=== PATIENT | female | born 1960 | race Caucasian/White ===

== ENCOUNTER 2021-03-27 23:08 | Emergency (ER) | payer OTHER ==
--- NOTE | 2021-03-27 23:34 | EDM.PDOC ---
ED HPI GENERAL MEDICAL PROBLEM - General Chief Complaint: Upper Extremity Injury/Pain Stated Complaint: POSSIBLE LEFT WRIST BROKEN Time Seen by Provider: 03/27/21 23:33 - History of Present Illness INITIAL COMMENTS - FREE TEXT/NARRATIVE: 60-year-old female presents the emergency room with left wrist injury and deformity. About an hour prior to arrival here the patient was walking and majora found an uneven piece of concrete tripped and fell forward. She had instant pain to her wrist and an obvious deformity. She denies any other injury associated with this most unfortunate event. The patient enjoys good health she is not on any routine medications. Left Wrist Pain Score (Numeric/FACES): 5 - Related Data Allergies Allergy/AdvReac Type Severity Reaction Status Date / Time Sulfa (Sulfonamide Allergy Rash Verified 03/27/21 23:24 Antibiotics) Home Meds: Home Meds . [No Known Home Meds] 03/27/21 [History] Review of Systems - Review of Systems Review Of Systems: See Below Constitutional: Reports: No Symptoms Respiratory: Reports: No Symptoms Cardiovascular: Reports: No Symptoms GI/Abdominal: Reports: No Symptoms ED EXAM, GENERAL - Physical Exam Exam: See Below Exam Limited By: No Limitations General Appearance: Alert, No Apparent Distress Head: Atraumatic, Normocephalic Neck: Normal Inspection, Supple, Non-Tender, Full Range of Motion. No: Lymphadenopathy (L), Lymphadenopathy (R) Respiratory/Chest: No Respiratory Distress, Lungs Clear, Normal Breath Sounds, No Accessory Muscle Use Cardiovascular: Regular Rate, Rhythm, No Edema, No Murmur Extremities: Other (Patient has an obvious deformity in her left wrist elbow appears normal she is got a volar displaced distal radius. Neurovascular status appears to be intact) Skin Exam: Other (She has an abrasion this does not appear to be close to the fracture fragment and is very superficial) ED TRAUMA EXTREMITY PROCEDURES - Joint Reduction Left Wrist Sedation: Other (IV fentanyl) Pre-Procedure NV Status: Normal Post-Procedure NV Status: Normal Technique: Other (In 5 pounds of weight in fingertrap traction this was gently reduced with subtle manipulation prior to splinting) Post-Reduction Imaging: Acceptably Reduced Joint Reduction Complications: No - Splinting Left Upper Extremity Splint Material: Plaster Splint Design: Sugar Tong Applied & Form Fitted By: Provider Provider Post-Splint Application NV Check: NV Status Normal Complications: No Course - Vital Signs Last Recorded V/S: Last Vital Signs Temp 36.1 C 03/27/21 23:24 Pulse 55 L 03/27/21 23:24 Resp 15 03/27/21 23:24 BP 106/66 03/27/21 23:24 Pulse Ox 98 03/27/21 23:24 - Orders/Labs/Meds Orders: Active Orders 24 hr Category Date Time Status Wrist 2V Lt [CR] Stat Exams 03/28/21 01:27 Taken Wrist Comp Min 3V Lt [CR] Stat Exams 03/27/21 23:25 Taken DME for Discharge [COMM] Stat Oth 03/28/21 01:39 Ordered Meds: Medications Discontinued Medications Generic Name Dose Route Start Last Admin Trade Name Wiley PRN Reason Stop Dose Admin Hydrocodone Bitart/Acetaminophen 1 tab 03/28/21 02:04 03/28/21 02:14 Acetaminophen/Hydrocodone 325-5 Mg Tab PO 03/28/21 02:05 1 tab ONETIME ONE Administration Fentanyl 50 mcg 03/28/21 00:11 03/28/21 00:15 Fentanyl 100 Mcg/2 Ml Sdv IVPUSH 03/28/21 00:12 50 mcg ONETIME ONE Administration Ondansetron HCl 4 mg 03/28/21 00:11 03/28/21 00:15 Ondansetron 4 Mg/2 Ml Sdv IVPUSH 03/28/21 00:12 4 mg ONETIME ONE Administration Ondansetron HCl 4 mg 03/28/21 00:35 03/28/21 00:41 Ondansetron 4 Mg/2 Ml Sdv IVPUSH 03/28/21 00:36 4 mg ONETIME ONE Administration - Re-Assessments/Exams Free Text/Narrative Re-Assessment/Exam: 03/28/21 02:11 Examination shows a volarly dislocated distal fragment of the radius. There is an associated ulnar styloid fracture. Case was discussed with Dr. Luna, on- call orthopedic surgeon with [facility] who recommends trying to reduce this. And have them follow-up with him or someone in the office tomorrow. I did attempt to reduce this using fingertrap traction. It looks much better but despite my best efforts is not a ideal reduction. However the patient feels better and she is neurovascular status is intact. 03/28/21 02:20 After fracture reduction and splinting the patient was placed in a sling to bett er support the splint and to facilitate with comfort and healing Departure - Departure Time of Disposition: 02:13 Disposition: Home, Self-Care 01 Clinical Impression: Closed fracture of distal end of radius Clinical Impression: (Ruled Out): Closed fracture of left distal radius and ulna - Discharge Information Instructions: Cast or Splint Care, Adult, [id number] Referrals: PCP,Not In Area [Primary Care Provider] - Oneal Luna MD [Ordering Only Provider] - Forms: ED Department Discharge Additional Instructions: Return to the emergency room with any questions problems or worsening symptoms. Wear the splint and sling at all times. Follow-up with Dr. Luna, or the [facility] in [place] later [phone] From the machine in the waiting room you are given 2 prescriptions the first 1 is for Mackey take 1 or 2 every 6 hours as needed for pain if Tylenol is not doing the job. Limit you total Tylenol intake to 3500 mg in a 24-hour period. You are also given on ondansetron use 1 preferably every 8 hours only if needed for nausea and vomiting this will dissolve on or under your tongue you can use this every 6 hours if needed. Sepsis Event Note (ED) - Evaluation Sepsis Screening Result: No Definite Risk - Focused Exam Vital Signs: Vital Signs Temp Pulse Resp BP Pulse Ox 03/27/21 23:24 36.1 C 55 L 15 106/66 98 - My Orders Last 24 Hours: My Active Orders 03/27/21 23:25 Wrist Comp Min 3V Lt [CR] Stat 03/28/21 01:27 Wrist 2V Lt [CR] Stat 03/28/21 01:39 DME for Discharge [COMM] Stat - Assessment/Plan Last 24 Hours: My Active Orders 03/27/21 23:25 Wrist Comp Min 3V Lt [CR] Stat 03/28/21 01:27 Wrist 2V Lt [CR] Stat 03/28/21 01:39 DME for Discharge [COMM] Stat
[2021-03-28] MEDS ORDERED: Ondansetron 4 MG/2 ML SDV IVPUSH ONE ×2 (00:11→00:35)
[2021-03-28] MEDS ORDERED: fentaNYL 100 MCG/2 ML SDV IVPUSH ONE (00:11)
[2021-03-28] MEDS ORDERED: Acetaminophen/HYDROcodone 325-5 MG Tab PO ONE (02:04)
--- NOTE | 2021-03-28 08:40 | CR ---
Left wrist: 3 views of the left wrist were obtained. Comparison: No prior study. Slightly comminuted distal radial fracture is seen with anterior displacement of the distal fragments as well as foreshortening and anterior angulation of the distal articular margin. Small fracture is noted within the ulnar styloid process. Soft tissue swelling is noted. Degenerative change is noted at the CMC joint of the thumb. Impression: 1. Comminuted distal radial fracture with displacement and compression. 2. Ulnar styloid process fracture and soft tissue swelling. Diagnostic code #3
--- NOTE | 2021-03-28 08:40 | CR ---
Left wrist: 2 views of the left wrist were obtained. Comparison: Prior wrist study performed one day earlier. Distal radial fracture is seen. Alignment is improved from prior study. Articular extension is seen. Fracture is noted within the ulnar styloid process. Plaster cast or splint is seen. Impression: 1. Improved alignment of previous distal radial fracture. Articular extension is seen. Ulnar styloid avulsion fracture is again noted. 2. Plaster cast or splint is seen. Diagnostic code #3
== END 2021-03-28 02:55 | disposition home or self-care (01) ==
LOC: JD.ED 23:08
DX: S52.502A Unspecified fracture of the lower end of left radius, initial encounter for closed fracture (principal); Z88.2 Allergy status to sulfonamides; W01.0XXA Fall on same level from slipping, tripping and stumbling without subsequent striking against object, initial encounter
CPT/HCPCS: 25605; 73100; 73110; 96374; 96375; 99283; A9270; J2405; J3010; 25565